=== PATIENT | male | born 1940 | race Caucasian/White ===

== ENCOUNTER → 2019-03-16 13:18 | Outpatient (CLI) | payer OTHER, SELFPAY ==
--- NOTE | 2019-03-16 13:25 | DI.US.S_ITS ---
PROCEDURE: US SCROTUM INDICATIONS: SCROTAL SWELLING TECHNIQUE: Real-time scanning was performed of the scrotum and testicles, with image documentation. Color and pulse Doppler interrogation was performed of both testicles. COMPARISON: Outside Film, CT, CT ABDOMEN PELVIS WITH CONTRAST, 01/05/2018, 7:13. FINDINGS: Right: Testicle is normal in size at 4.6 x 3.7 x 3.6 cm, and homogenous in echotexture. Epididymis is normal in overall size. There is a simple epididymal head cyst that measures 1 cm. No hydrocele or varicoceles. Overlying scrotal skin is normal in thickness. Left: Testicle is normal in size at 4.9 x 3.3 x 2.6 cm, and homogeneous in echotexture. Epididymis is normal in overall size and morphology. There is a large left-sided hydrocele. No varicoceles. Overlying scrotal skin is normal in thickness. Doppler: Color and pulse Doppler demonstrate normal and symmetric arterial flow in both testicles. IMPRESSION: There is a large left-sided hydrocele. Normal appearing testicles, which demonstrate normal vascularity. No testicular masses are seen. Incidental note is made of right epididymal head cyst. Dictated by: Jonah Shah M.D. on 03/16/2019 at 15:19 Approved by: Jonah Shah M.D. on 03/16/2019 at 15:20
== END ==
PROVIDERS: Family Provider Family Medicine; PCP Family Medicine; Referring Provider Urology; Visit Provider Urology
DX: N50.89 Other specified disorders of the male genital organs (principal); N50.3 Cyst of epididymis; N43.3 Hydrocele, unspecified
CPT/HCPCS: 76870

== ENCOUNTER 2022-06-01 09:58 | Outpatient (RCR) | payer OTHER, SELFPAY ==
--- NOTE | 2022-06-01 14:29 | ST.OPIE ---
Visit Care Team Role Provider Type YADIRA Herrera Family Provider Non-Staff Primary Care Provider Specialty: Nursing Address: [address] [place] [address], [id number] Email: Adrian Arango MD Attending Provider Physician Referring Provider Specialty: Ear, Nose, Throat Address: [address] [place] [address], [id number] Email: [email or web address] Speech-Language Pathology Initial Evaluation HAND CELL TUBER Voice Resonance Evaluation Start: 06/01/22 11:49 Freq: Status: Active Protocol: Document 06/01/22 13:27 LNK (Rec: 06/01/22 14:29 LNK [id number]) Voice and Resonance Assessment Session Time Visit Start Time 10:30 Visit Stop Time 11:45 Total Visit Minutes 75 Visit Information Plan of Care Dates 06/01/22-07/30/22 Next Note Type Next Note Type Treatment Note Referral Referring Physician Dr. Adrian Arango Setting Setting Outpatient Care Patient History Patient History Pt was seen for vocal dysphonia at the referral of Dr Arango, ENT. he was accompanied by his , Nereyda. Pt has a complex history including exposure to agent orange and napalm in [place] and was a smoker untilhe stopped in the 80s. 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 Relative to his cancer, the pt reported that currently he is in remission but needs to take his chemotherapy medication ( Pomalyst) for the rest of his life. According to the pt and his , his vocal hoarseness began after starting the Pomalyst medication. Side effects of this medication include shortness of breath, upper respiratory illness, peripheral edema, cough and, according to the pt, hoarseness. The pt described his voice as better at times and then he has no voice at all. He stated that he is a very social person and has difficulty being heard. The pt reported that Dr. Arango viewed his vocal folds and noted no tumor or other abnormality. 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 Dr. Arango prescribed Omneprozol for GERD (silent) daily, which the pt reported no change in his voice. Hearing Auditory History hearing appeared to be WFL Oral Motor Assessment Source: [employer] (DICK). Oral-Motor Assessment Informal observation noted the pt's oral structures to be WFL for form and function Subjective Subjective Pt's spoke withg limited loudness secondary to hoarseness. Both he and his were conversant, providing background information. - Laryngeal Performance S/Z Ratio S/Z Ratio Unable to assess Functional for Speech No Reduced Laryngeal Function Relative to Yes: pt c/o being out of Respiration breath easily when speaking Voice Handicap Index Function Subtotal 26 Physical Subtotal 35 Emotional Subtotal 16 Total Score 77 Severity Severe (61-120) CAPE-V Overall Severity 83 Roughness 83 Breathiness 85 Strain 32 Pitch glottal mcfadden to aphonic Loudness low loudness level Normal Resonance? Yes Additional Features Glottal Mcfadden,Aphonia Maximum Phonation Time MPT Norms: Women (15-25) Men (25-35) Loudness (50-60 dB); Speaking Rate: Oral Reading of Sentences (190 Words Per Minute); Oral Reading of Paragraphs (160-170 WPM); Speaking Rate in Conversation (150-250 WPM) Maximum Phonation Time unable to assess Maximum Phonation Time Reduced,Unstable Loudness Maximum Phonation Time Comments pt was able to prolong a glottal mcfadden for 14.67 sec indicating adequate respiratory support for voicing. No measurable phonation was noted Jitter/Shimmer Norms: Jitter (Less than or equal to 1.040% - Frequency) Norms: Shimmer (Less than or equal to 3.810% - Amplitude) Jitter Unable to assess Shimmer Unable to assess Pitch [place] Pitch [place] Comments Unable to assess Muscle Tension Assessment Muscle Tension Assessment Jaw,Neck,Shoulders Muscle Tension Assessment Comments pt reported that when speaking he feels muscle aches in his neck and ja Tongue Base Tension Tongue Base Tension w/ Voicing Yes Breath Support Breath Support At Rest Abdominal,Thoracic,Mixed Breath Support Sustained Phonation Thoracic,Clavicular,Mixed Breath Support Conversation Thoracic,Mixed Speaks on Room Air Yes Postural Alignment Stance Balanced Neck Static Shoulders Symmetrical,Both High Voice Pitch Range Norms: Women (100-300 Hz) Men (70-250 Hz) Fundamental Frequency Norms: Women (Mean: 225 Hz; Range: 155-334 Hz) Men ( Mean: 128 Hz; Range: 85-196 Hz) Voice Pitch Excessive Variation Voice Loudness Mildly Soft/Quiet,Moderately Soft/Quiet,Limited Variation Voice Phonatory-based Quality Breathy,Harsh,Hoarse,Loss of Voice,Glottal Mcfadden Fundamental Frequency Unable to assess Paradoxical Vocal Fold Movement No Indications Resonance Nasal Resonance Normal Therapeutic Techniques Other Tactics Vocal rest, Vocal hygeine, glottal adduction trial Findings Findings Moderate-Severe Impairment Voice/Resonance Assessment Assessment The pt presented with severe vocal dysphonia characterized by glottal mcfadden, aphonia and limited phonation. Pt reported that his hoarseness began after starting a cancer medication, Pomalyst. Side effects of this medication may have resulted in VF edema, shortness of breath and/or vocal hoarseness. Additionally , there may be a presbylaryngis element contributing to pt's voice, given his age. As pt reports being very social, enjoying talking with others, he feels that his vocal quality is has a negative affect on his daily activites. He does note that his voice does improve with rest, but will typically fade to aphonia by the end of each day. The pt denies GERD, but continues to take Omneprozol re: silent GERD. As discontinuing the pt's Pomalyst is not an option, vocal therapy is recommended to target vocal hygiene/rest and a trial of vocal adduction exercises to determine if increasing medial compression via exercises is beneficial in restoring some phonation ( assuming presbylaryngis). Discussed the results and treatment with the pt, who indicated he agreed. Written information was provided to the pt re: vocal hygiene program and adduction exercises. Will f//u with pt in 2 weeks. - Recommendations Treatment Recommended Yes Treatment Frequency/Duration every other week Short Term Goals 1) Pt will follow a vocal hygiene program at home daily in order to preserve voicing, per pt report. 2) Pt will perform glottal adduction exercises up to 10x/ day as described, per pt report. Plant Assigner Goals Improved vocal quality Patient/Caregiver Education Patient/Family Education Described results of evaluation,Patient Understanding,Family Understanding,Patient Demonstration,Family Demonstration
--- NOTE | 2022-06-01 14:31 | ST.OPPOC ---
Physical, Occupational & Speech Therapy At [facility] Visit Care Team Role Provider Type YADIRA Herrera Family Provider Non-Staff Primary Care Provider Address: [address] [place] [address], [place], [address] Adrian Arango MD Attending Provider Physician Referring Provider Address: [address] [place] [address], [address] Speech Pathology Plan of Care Plan of Care Dates 06/01/22-07/30/[address] Adrian Arango Patient History Pt was seen for vocal dysphonia at the referral of Dr Arango, ENT. he was accompanied by his , Nereyda. Pt has a complex history including exposure to agent orange and napalm in [place] [facility] war and was a smoker untilhe stopped in the 80s. Pt's PMH includes two forms of cancer ( multiple myloma and MDS), COPD Tourette's Syndrome and he is taking blood thinners. Relative to his cancer, the pt reported that currently he is in remission but needs to take his chemotherapy medication (Pomalyst) for the rest of his life. According to the pt and his , his vocal hoarseness began after starting the Pomalyst medication. Side effects of this medication include shortness of breath, upper respiratory illness, peripheral edema, cough and , according to the pt, hoarseness. The pt described his voice as better at times and then he has no voice at all. He stated that he is a very social person and has difficulty being heard. The pt reported that Dr. Arango viewed his vocal folds and noted no tumor or other abnormality. 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 Dr. Arango prescribed Omneprozol for GERD (silent) daily, which the pt reported no change in his voice. Voice/Resonance Findings Moderate-Severe Impairmen Voice/Resonance Assessment The pt presented with severe vocal dysphonia characterized by glottal mensah, aphonia and limited phonation. Pt reported that his hoarseness began after starting a cancer medication, Pomalyst. Side effects of this medication may have resulted in VF edema, shortness of breath and/or vocal hoarseness. Additionally, there may be a presbylaryngis element contributing to pt's voice, given his age. As pt reports being very social, enjoying talking with others, he feels that his vocal quality is has a negative affect on his daily activities. He does note that his voice does improve with rest, but will typically fade to aphonia by the end of each day. The pt denies GERD, but continues to take Omneprozol re: silent GERD. As discontinuing the pt's Pomalyst is not an option, vocal therapy is recommended to target vocal hygiene/rest and a trial of vocal adduction exercises to determine if increasing medial compression via exercises is beneficial in restoring some phonation (assuming presbylaryngis). Discussed the results and treatment with the pt, who indicated he agreed. Written information was provided to the pt re: vocal hygiene program and adduction exercises. Will f//u with pt in 2 weeks. Voice/Resonance Yes Recommendations Voice/Resonance Treatment every other week Frequency Short Term Goals 1) Pt will follow a vocal hygeine program at home daily in order to preserve voicing, per pt report. 2) Pt will perform glottal adduction exercises up to 10x/day as described, per pt report. Jail Goals Improved vocal quality Comment: Electronically Signed by: Teresa Larios, UI APPLICATION DEVELOPER 06/01/22 0555 If you are in agreement with this Plan of Care, please return a signed and dated copy. I have reviewed this Plan of Care and certify that the skilled therapy services above are required to meet the patient?s needs. Physician Signature Date Printed Name and Credentials Clinical Instructor Signature Printed Name and Credentials
--- NOTE | 2022-06-16 09:12 | ST-OP ANOTE ---
Physical, Occupational & Speech Therapy At [facility] Speech Therapy Note Pt was seen for evaluation only. He has since cancelled remaining appointmemnts. Will close file.
== END 2022-06-18 14:43 | disposition home or self-care (01) ==
LOC: SP 09:58
PROVIDERS: Family Provider Nurse Practitioner Family; PCP Nurse Practitioner Family; Referring Provider Otolaryngology Facial Plastic Surgery; Visit Provider Otolaryngology Facial Plastic Surgery
DX: J37.0 Chronic laryngitis (principal)
CPT/HCPCS: 92520; 92524

== ENCOUNTER → 2023-11-22 07:47 | Outpatient (CLI) | payer OTHER, SELFPAY | PROVIDERS: Family Provider Nurse Practitioner Family; PCP Nurse Practitioner Family; Referring Provider Internal Medicine Medical Oncology; Visit Provider Internal Medicine Medical Oncology | DX: D69.6 Thrombocytopenia, unspecified (principal) | CPT/HCPCS: 36415; 86900; 86901 ==

== ENCOUNTER 2023-11-23 06:51 | Outpatient (CLI) | payer OTHER, SELFPAY ==
[2023-11-23] VITALS (13 sets, daily range): BP systolic 99–148; BP diastolic 58–94; PULSE 75–100; RESP 20–27; TEMP 37.1–37.4; O2SAT 92–97
--- NOTE | 2023-11-23 | PATH_ITS ---
[facility] Accession Number: [id number] No. of containers..01 Tissue No. of containers..13 Slide . 01 Material submitted: . bone marrow - BONE MARROW CORE . 01 Diagnosis: BONE MARROW BIOPSY, ASPIRATE CLOT, ASPIRATE SMEAR, TOUCH PREP: -Ocean-restricted plasma cells comprising 95% of bone marrow cellularity, see comment and microscopic description. -Hypercellular bone marrow for age (95%), with extremely rare granulocytes and, and near absent megakaryocytes, erythroid precursors, and blasts. -Kihguvtw-sj-aqhoiq reticulin fibrosis (MF2-3 of 3). -Chromosome analysis and multiple myeloma FISH panel pending. - COMMENT: Concurrent flow cytometry analysis demonstrated an abnormal kappa-restricted plasma cell population, negative for CD19, CD20, CD38, CD45, and CD56. Flow showed no increased or definite aberrant blasts, and no monotypic B-cell or aberrant T-cell populations (see report for details: [phone]). - The sample consists of sheets of abnormal plasma cells with minimal background normal hematopoiesis. Chromosome analysis and multiple myeloma FISH panel results will be reported in an addendum. Follow up and clinical correlation is recommended. [facility] 11/28/2023 1849 Local . 01 Electronically signed: . Catherine Trimble MD, Pathologist NPI- [id number] . 01 Gross description: . Received in formalin with two identifiers and no site on jar, is a ambrosio needle core of osseous tissue 1.0 cm in length by 0.2 cm in diameter. Submitted entirely in cassette A1 following decalcification in Immunocal. ([id number]) /[facility]ERE 11/24/2023 0941 Local . 01 Microscopic: . 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 On Daratumumab and Dexamethasone. Serum Ocean/lambda ratio of 3,481 (11/02/2023). History of MDS-RS with SF3B1 mutation, and no overt morphologic dysplasia. - CBC RESULTS (11/23/2023): WBC: 2.7 K/uL (L) Abs. Neutrophils: K/uL HGB: 7.5 g/dL (L) HCT: 21.1% (L) MCV: 92 fL (L) PLT: 27 K/uL. (L) - BONE MARROW ASPIRATE SMEAR/TOUCH PREP MANUAL DIFFERENTIAL (%): Aspirate smears are cellular and spicular, touch prep slides are adequate for evaluation. Cells virtually entirely consist of large, atypical plasma cells with large nuclei, large prominent nucleoli (plasmablastic morphology), with occasional multinucleation, (95%), with rare lymphocytes. Iron stain (aspirate smear): Rare stainable iron seen. Assessment for presence of ring sideroblasts cannot be completed as too few erythroid precursors are present for evaluation. - In order to characterize this process more fully, immunohistochemical stains were indicated and performed with adequate controls, see below for findings and interpretation. - CORE BIOPSY: Ample sized trabecular core with notable crush artifact, adequate for evaluation. Plasma cells: CD138 highlights abnormal plasma cells, positive for kappa, negative for lambda, CD45, and CD117. The abnormal plasma cells are negative for CD19, CD20, and CD56 by flow cytometry. Cellularity: 95% cellular bone marrow core. Reticulin stain (core biopsy): Uliiwmlt-mb-nqqild reticulin fibrosis (MF2-3 of 3). Lymphocytes: Negative for discrete lymphoid aggregates. CD3 highlights scattered T-cells, 3-5%; CD20 is negative for B-cells. Blasts: Significantly reduced, <0.1% blasts, as highlighted by CD34 immunostain. Erythroid cells: Virtually absent erythroid precursors, as denoted by CD71 immunostain. Myeloid cells: Extremely rare, scattered granulocytes, mostly paratrabecular, <1% of cellularity, as highlighted by CD15 immunostain. CD45 highlights myeloid cells and T-cells. Megakaryocytes: Virtually absent, as denoted by FactorVIII immunostain. - ASPIRATE CLOT: Not submitted. - As part of ongoing quality control inspector heading, select slides were reviewed by Dr. Jairon Grant who agrees with the interpretation. Technical Note: The immunohistochemical stains reported were performed at [facility] ([address] [place] [address] [address], [facility] [address]). This test was developed, and the performance characteristics were validated by [facility]. It has not been cleared or approved by the Food and Drug Administration. . 01 Pathologist provided ICD-10: D46.9, C90.02 . 01 CPT . 988082, 062479, 142103, 914617, 171170, 798640, L10653, Y31696 Specimen Comment: A courtesy copy of this report has been sent to [phone] Performed at: [address] [place] [address] [address], [place], [place] [id number] MD Marcos Machado MD Phone: [phone]
--- NOTE | 2023-11-23 | DI.CT.S_ITS ---
PROCEDURE: CT BIOPSY BONE DEEP INDICATIONS: MYELODYSPLASTIC SYND/MULTIPLE MYELOMA TECHNIQUE: The indications, alternatives, benefits, risks, and possible complications of the procedure were communicated to the patient. Informed written consent from the patient was obtained and placed in the chart. Continuous EKG and hemodynamic monitoring was started by trained personnel. The patient was brought to the CT suite and patient financial rep spiral CT imaging was performed with localization grid. The appropriate site for percutaneous access to the biopsy target was marked, was prepped and draped sterilely, and was infused with local anaesthesia. Under CT guidance, a core biopsy trocar and needle set was advanced to the biopsy target, and specimen(s) were obtained. The trocar and needle were then removed, and the patient was sent for post-procedure monitoring. COMPARISON: None. FINDINGS: Biopsy site: Left iliac bone Needle: 11 gauge biopsy needle with introducer trocar. Number of passes: 1 Medications: 1% lidocaine for local anaesthesia. Patient was not a candidate for moderate sedation. Complications: None. IMPRESSION: Successful CT-guided biopsy of left iliac bone as noted above Dictated by: Driss Ag M.D. on 11/23/2023 at 16:20 Approved by: Driss Ag M.D. on 11/23/2023 at 16:21
[2023-11-23 10:54] LABS: Hematocrit 21.1 % (41-53); Hemoglobin 7.5 g/dL (13.5-17.5); Mean Corpuscular HGB Conc 35.5 % (30-36); Mean Corpuscular Hemoglobin 32.6 PG (26-34); Mean Corpuscular Volume 91.8 fL (80-100); Red Cell Distribution Width 17.6 % (11.6-14.8); White Blood Cell Count 2.7 X10^3/uL (4.5-11.0)
[2023-11-23 10:56] LABS: Platelet Count 27 X10^3/uL (150-400)
--- NOTE | 2023-11-23 15:20 | PC.NURSE ---
increased HR and BP during Platelet infusion due to pain via biopsy.
== END 2023-11-23 10:29 | disposition home or self-care (01) ==
LOC: CT 06:54
PROVIDERS: Radiology Diagnostic Radiology; Family Provider Nurse Practitioner Family; PCP Nurse Practitioner Family; Referring Provider Internal Medicine Medical Oncology; Visit Provider Internal Medicine Medical Oncology
DX: D46.9 Myelodysplastic syndrome, unspecified (principal); C90.02 Multiple myeloma in relapse
CPT/HCPCS: 20225; 36415; 36430; 77012; 85027; 86900; 86901; J2250; J3010; P9035